=== PATIENT | female | born 1955 | race Caucasian/White ===

== ENCOUNTER 2017-11-14 09:05 | Emergency (ER) | payer OTHER ==
--- OUTSIDE RECORDS SUMMARY | 2017-11-14 09:12 | XMS REPORT ---
:1955 External Reference #:[id number] Author Organization [facility] Address [address] [address] Phone [phone] Care Team Providers Name Role Phone Laxmi Morgan MD Primary Care Physician Unavailable Payers Type Date Identification Numbers Payment Provider Subscriber Commercial Policy Number: [id number] [employer] Nae Garza Group Number: [id number] [address] PayID: [id number] [place] [address] Problems Date Description Provider Status Onset: 04/05/2017 Difficulty breathing Bharti Arguelles MD Active Onset: 04/05/2017 Peptic reflux disease Bharti Arguelles MD Active Onset: 04/05/2017 Disorder of lung Bharti Arguelles MD Active Family History Date Family Member(s) Problem(s) Comments General Diabetes General Heart Disease General cancer Father due to CAD () Mother Chronic Obstructive Pulmonary Disease (COPD) Social History Type Date Description Comments Marital Status Lives With spouse Occupation [employer] Representative Cigarette Use Former smoker Cigarette Use Former Cigarette Smoker 1/2 Pack Daily Cigarette Use Pack Years - 16 ETOH Use Denies alcohol use Smoking Patient is a former smoker Recreational Drug Use Denies Drug Use Daily Caffeine Consumes on average 1 cup of hot tea per day Daily Caffeine Consumes on average 3 cups of regular coffee per day Exercise Type/Frequency Exercises regularly Exercise Type/Frequency Walks 2 times a week Allergies, Adverse Reactions, Alerts Date Description Reaction Status Severity Comments 03/10/2014 Guaifenesin active 03/10/2014 Latex active 08/24/2016 Eggs or Egg-derived Products active Medications Medication Date Status Form Strength Qnty SIG Indications Ordering Provider Mandibular 06/21 Active Device dear , Bharti Advancement Device please MD Kindra evaluate and fabricate oral appliance for mild sleep apnea Zzoma Positional 05/03 Active 1unit G47.33 Bharti Pillow s MD Kindra Flovent Diskus 04/05 Active Aerosol 100mcg/Bl 56uni 1 puff J98.4 ist ts twice MD Kindra daily Evista 00 Active 1 po qday Unknown /0000 Synthroid Active 137mcg 1 po qday Unknown / Gabapentin Active 300mg 1 po qday Unknown / Aspir-81 Active Tablets 81mg 1 by mouth Unknown /0000 every day Crestor Active Tablets 10mg 1 by mouth Unknown / every day Vitamin D Active Capsules 1 by mouth Unknown (Cholecalciferol) / every day Meclizine HCL Active Tablets 12.5mg as needed Unknown /0000 ( using qd) Hydrochlorothiazid Active Tablets 12.5mg 1 by mouth Unknown e / every day Dexilant Active 60mg 1 po daily Unknown / Zantac Active 1 daily Unknown /0000 prn Tramadol HCL 01/26 Hx Tablets 50mg 60tab 1 by mouth M17.12 s every 6 Bordoni, - hours as CUT OFF TENDER GLASS 04/04 needed for pain Tramadol HCL 03/18 Hx Tablets 50mg 40tab 1 tablet s by mouth Tono, - every 6 M.D. 01/20 hours needed pain Naproxen 04/10 Hx Tablets 500mg 60tab 1 tab by Michelle s mouth Tono, - twice a M.D. 03/17 day. with food. Hydrodirual 03/10 Hx Jennifer /2014 Kemi, - M.D. 05/02 Hydroxyzine HCL 00/00 Hx Unknown /0000 - 03/17 Magnesium 00/00 Hx Tablets 1 by mouth Unknown /0000 every day - 04/04 Coq-10 Hx Capsules 2 by mouth Unknown /0000 every day - 04/04 Flovent Diskus 00 Hx Aerosol 250mcg/Bl 1 puff /0000 ist twice a - day 04/05 Medications Administered in Office Medication Date Status Form Strength Qnty SIG Indications Ordering Provider Depomedrol Administered Injection Young Ipson, 40MG 017 PA Depomedrol Administered Injection Jennifer 40MG 016 Antonio Mcmullen Depomedrol Administered Injection Michelle 80MG 015 Antonio Power Depomedrol Administered Injection Jennifer 80MG 014 Antonio Mcmullen Vital Signs Date Vital Result Comment 10/26/2017 Height 62 inches 5'2" Weight 156.50 lb with shoes and sweater Heart Rate 76 /min BP Systolic Sitting 138 mmHg Rue reg cuff BP Diastolic Sitting 76 mmHg Rue reg cuff Respiratory Rate 16 /min O2 % BldC Oximetry 95 % On Ra BMI (Body Mass Index) 28.6 kg/m2 05/22/2017 Height 62 inches 5'2" Weight 143.00 lb Heart Rate 80 /min BP Systolic 122 mmHg BP Diastolic 74 mmHg Body Temperature 98.9 F BMI (Body Mass Index) 26.2 kg/m2 05/03/2017 Height 62 inches 5'2" Weight 143.00 lb Heart Rate 76 /min BP Systolic Sitting 142 mmHg BP Diastolic Sitting 76 mmHg Respiratory Rate 14 /min O2 % BldC Oximetry 96 % room air BMI (Body Mass Index) 26.2 kg/m2 04/05/2017 Height 62 inches 5'2" Weight 140.00 lb Heart Rate 76 /min BP Systolic Sitting 118 mmHg BP Diastolic Sitting 72 mmHg Respiratory Rate 16 /min O2 % BldC Oximetry 98 % BMI (Body Mass Index) 25.6 kg/m2 Neck Circumference in inches 13 08/24/2016 Height 62 inches 5'2" Weight 146.00 lb BP Systolic 118 mmHg BP Diastolic 68 mmHg BMI (Body Mass Index) 26.7 kg/m2 01/27/2016 Height 62 inches 5'2" Weight 146.00 lb Pain Level 4 BMI (Body Mass Index) 26.7 kg/m2 03/18/2015 Height 62 inches 5'2" Weight 146.00 lb Heart Rate 73 /min BP Systolic 150 mmHg BP Diastolic 93 mmHg Pain Level 6 BMI (Body Mass Index) 26.7 kg/m2 04/10/2014 Height 62 inches 5'2" Weight 145.00 lb Heart Rate 72 /min BMI (Body Mass Index) 26.5 kg/m2 03/13/2014 Height 62 inches 5'2" Weight 145.00 lb Heart Rate 71 /min BP Systolic 156 mmHg BP Diastolic 77 mmHg BMI (Body Mass Index) 26.5 kg/m2 Results Test Date Test Result H/L Range Note Anca Panel For Vasculitis 04/12/2017 Myeloperoxidase AB < 0.2 U 1 Proteinase 3 AB < 0.2 U 2 Laboratory test finding 04/12/2017 Centromere Auto Abs <0.2 U 3 Rheumatoid Factor <15 IU/mL <15 4 Scleroderma AB (SCL70) 04/12/2017 Scleroderma Ab <0.2 U 5 Laboratory test finding 04/12/2017 Anti Nuclear Antibody 0.2 U 6 1 REFERENCE VALUE <0.4 (Negative) 2 REFERENCE VALUE <0.4 (Negative) Test Performed by: [facility] [address] [place] [address] 3 REFERENCE VALUE <1.0 (Negative) Test Performed by: [facility] [address] [place] [address] 4 Test Performed by: [address] [address] 5 REFERENCE VALUE <1.0 (Negative) Test Performed by: [facility] [address] [place] [address] 6 REFERENCE VALUE <=1.0 (Negative) Test Performed by: [facility] [address] [place] [address] Procedures Date CPT Code Description Status 05/22/2017 Inject/Drain Joint/Bursa Major Completed 04/12/2017 57692 Sleep Study Unattended,HRT Rate,Oxygen Sat,Resp Completed Effort/Airflow 03/01/2017 31885 Diffusing Capacity Completed 03/01/2017 82830 Plethysmography Determination Lung Volumes & Per Completed Airway Resist 03/01/2017 18929 Pulmonary Function><Bronchodil Completed 08/24/2016 Inject/Drain Joint/Bursa Small Completed 03/18/2015 Inject/Drain Joint/Bursa Major Completed 04/10/2014 62746 Xray Knee 3 Views Completed 04/10/2014 16240 Rad Exam; Knee, Ap&L Completed 03/13/2014 20810 Rad Exam; Hand Comp Completed 03/13/2014 16689 Rad Exam; Hand Comp Completed 03/13/2014 Inject/Drain Joint/Bursa Small Completed Encounters Type Date Location Provider CPT E/M Dx Office Visit 05/03/2017 [facility] [place] [address] G47.33 8:15a Services [facility] Patient Transportation Driver K21.0 Office Visit 04/05/2017 8:45a [facility] [place] [address] J98.4 Services Of Patient Transportation Driver K21.0 R06.83 R40.0 Office Visit 08/24/2016 1:50p [facility] Jennifer Mcmullen 01957 M18.11 Of John Alvarez M75.51 Office Visit 01/27/2016 9:15a [facility] Michelle Power M.D. 67115 M17.12 Of John Office Visit 03/18/2015 3:15p [facility] Michelle Power M.D. 29502 715.96 Of John Office Visit 04/10/2014 2:15p [facility] Michelle Power M.D. 31235 715.96 Of John Office Visit 03/13/2014 8:15a [facility] Jennifer Mcmullen 97767 715.14 Of John Alvarez Plan of Care Future Appointment(s):04/26/2018 3:30 pm - Bhart[facility]2017 - Bharti Arguelles MDJ98.4 Other disorders of lungNew Labs:Alpha 1 Antitrypsin A1aNew Xrays:CT Chest W/OFollow up:6 wxqzotV11.33 Obstructive sleep apnea (adult) (pediatric)K21.0 Gastro-esophageal reflux disease with esophagitis
[2017-11-14 09:16] VITALS: BP 143/62
--- NOTE | 2017-11-14 10:00 | UC ---
Lower Extremity/Ankle HPI - HPI Summary HPI Summary: Patient present following a fall yesterday, she slipped on ice and fell forward and landed on her left knee, and her right leg hyperextended behind her. She got herself up and has been able to walk and move the legs, but complains of right lower posterior leg pain with walking. She also complains of right sided lower back pain. She states the pain occurs when she walks,or moves and is better at rest. she denies any had or neck injury, no LOC. She denies any loss of bowel or bladder, and denies any parasthesia. - History of Current Complaint Chief Complaint: UCBackPain Stated Complaint: RIGHT LEG PAIN Time Seen by Provider: 11/14/17 09:28 Hx Obtained From: Patient Onset/Duration: Sudden Onset, Lasting Days Severity Initially: Mild Severity Currently: Moderate Aggravating Factor(s): Standing, Ambulation Alleviating Factor(s): Rest Able to Bear Weight: Yes - Risk Factors Gout Risk Factors: Negative DVT Risk Factors: Recent Trauma Septic Arthritis Risk Factor: Negative - Allergies/Home Medications Allergies/Adverse Reactions: Allergies Allergy/AdvReac Type Severity Reaction Status Date / Time Eggs or Egg-derived Products Allergy Intermediate Vomiting Verified 11/14/17 09: 16 Latex Allergy Intermediate Hives//Itch Verified 11/14/17 09:16 ing Guaifenesin & Derivatives AdvReac Intermediate Vomiting Verified 11/14/17 09:16 guafensin AdvReac Intermediate Vomiting Uncoded 11/14/17 09:16 Home Medications: Home Medications Dexlansoprazole (NF) [Dexilant (NF)] 60 mg PO DAILY 11/14/17 [History Confirmed 11/14/17] PMH/Surg Hx/FS Hx/Imm Hx Previously Healthy: Yes Endocrine History: Hypothyroidism, Dyslipidemia Cardiovascular History: Hypertension GI/ History: Gastroesophageal Reflux - Surgical History Surgical History: Yes Surgery Procedure, Year, and Place: left knee cartilage removed , hysterectomy, lumpectomy left breast; sinus - Family History Known Family History: Positive: Cardiac Disease - Social History Lives: Alone Alcohol Use: Occasionally Substance Use Type: None Smoking Status (MU): Former Smoker Type: Cigarettes When Did the Patient Quit Smoking/Using Tobacco: 26 years ago Household Exposure Type: Cigarettes Review of Systems Constitutional: Negative Skin: Negative Eyes: Negative ENT: Negative Respiratory: Negative Cardiovascular: Negative Gastrointestinal: Negative Genitourinary: Negative Motor: Negative Neurovascular: Negative Musculoskeletal: Arthralgia, Myalgia Neurological: Negative Psychological: Negative Is Patient Immunocompromised?: No All Other Systems Reviewed And Are Negative: Yes Physical Exam Triage Information Reviewed: Yes Appearance: Well-Appearing Vital Signs: Initial Vital Signs Temp 98.0 F 11/14/17 09:08 Pulse 81 11/14/17 09:08 Resp 16 11/14/17 09:08 BP 143/62 11/14/17 09:08 Pulse Ox 100 11/14/17 09:08 Vital Signs Reviewed: Yes Eye Exam: Normal ENT Exam: Normal Neck exam: Normal Neck: Positive: 1 Respiratory Exam: Normal Cardiovascular Exam: Normal Abdominal Exam: Normal Musculoskeletal Exam: Normal Musculoskeletal: Positive: Strength Intact, ROM Intact, No Edema - back, and right lower extremity; inspection, no areas of erythema, edema, or eccymosis. of vertebra, or the left knee, right posterior leg. palpation, tenderness on palpaiton of the right lower lateral lumbar area. ROM: intact in all planes. vasc: no edema. neruo, no dificits to touch distally. Neurological Exam: Normal Psychological Exam: Normal Skin Exam: Normal Lower Extremity Course/Dx - Course Course Of Treatment: Patient presents one day s/p fall landed on her left knee and extending the right leg behind her. She complains of right lower back, and posterior right leg pain from the lower back to the knee. She declined my recommendations for scrreing xrays, because she had to go help her mother and did not want to spend the time for xrays. I told her that there is no way for me to evaluate for fracture with the xray and she verbalized understanding. I also told her that if her symtpoms persisted and or did not improve within 3-5 days or if for any reason they get worse to either go to the ER/PCP or come back here for imaging. She was RX flexeril and tylenol for pain and discharged home. - Differential Dx/Diagnosis Differential Diagnosis/HQI/PQRI: Sprain, Strain Provider Diagnoses: sprain. strain. muscularskeletal pain. back pain Discharge - Discharge Plan Condition: Stable Disposition: HOME Prescriptions: Acetaminophen TAB* [Tylenol TAB*] 650 mg PO Q4H PRN #20 tab PRN Reason: Pain Cyclobenzaprine HCl [Flexeril 5 mg (NF)] 5 mg PO TID #14 tab Patient Education Materials: Muscle Strain (ED), Musculoskeletal Pain (ED) Referrals: Laxmi oMrgan MD [Primary Care Provider] - Additional Instructions: Patient declined imaging today with the understanding that there could be fracture even though she is able to walk and use the extremity. I told her that is the symptoms persist beyond 3-5 days or if for any reason they get worse to go to the ER at once.
== END 2017-11-14 09:48 | disposition home or self-care (01) ==
LOC: UCEAST 09:05
DX: M54.5 Low back pain (principal); M25.562 Pain in left knee; W00.0XXA Fall on same level due to ice and snow, initial encounter; Y93.9 Activity, unspecified; Y92.9 Unspecified place or not applicable; Y99.9 Unspecified external cause status; K21.9 Gastro-esophageal reflux disease without esophagitis; Z87.891 Personal history of nicotine dependence; Z72.89 Other problems related to lifestyle
CPT/HCPCS: 99212; G0463

== ENCOUNTER 2019-08-11 10:41 | Emergency (ER) | payer OTHER ==
[2019-08-11 10:54] VITALS: BP 146/73
--- NOTE | 2019-08-11 11:41 | UC ---
Skin Complaint HPI - HPI Summary HPI Summary: Patient is 63 year old female , who present today to the urgent care with possible left knee infection since yesterday. Reports that on the top of the incision of the left knee there was a small pustule that she squeezed and pus came out and now there is surrounding area of redness. small scape at the inferior end of the incision. She had L knee incision from knee surgery (replacement) April 22, [address] Dr[address] Dickey 3 weeks ago and knee progressing as expected. Denies any fevers or chills. She has almost completed her physical therapy - History of Current Complaint Chief Complaint: UCWounds Time Seen by Provider: 08/11/19 11:30 Stated Complaint: L KNEE PAIN Pain Intensity: 3 - Allergy/Home Medications Allergies/Adverse Reactions: Allergies Allergy/AdvReac Type Severity Reaction Status Date / Time MS Eggs or Egg-derived Allergy Intermediate Vomiting Verified 08/11/19 10:46 Products [Eggs or Egg-derived Products] MS Latex [Latex] Allergy Intermediate Hives//Itch Verified 08/11/19 10:46 ing MS Guaifenesin & Derivatives AdvReac Intermediate Vomiting Verified 08/11/19 10: 46 [Guaifenesin & Derivatives] guafensin AdvReac Intermediate Vomiting Uncoded 08/11/19 10:46 Home Medications: Home Medications Chlorthalidone TAB* [Hygroton TAB*] 25 mg PO DAILY 08/11/19 [History Confirmed 08/11/19] Pantoprazole TAB * [Protonix TAB*] 40 mg PO DAILY 08/11/19 [History Confirmed ] Potassium 99 mg PO DAILY 08/11/19 [History Confirmed 08/11/19] PMH/Surg Hx/FS Hx/Imm Hx - Additional Past Medical History Additional PMH: Past Medical History : Hypertension, hyperlipidemia, breast cancer acid reflux, arthritis 1995 breast cancer left HX RADIATION AND CHEMO Past Surgical History: left knee replaced, hysterectomy, lumpectomy left breast ; sinus surgery Family History : non contributory Social History no alcohol, former smoker, no drug use. Previously Healthy: Yes - Surgical History Surgical History: Yes Surgery Procedure, Year, and Place: left knee replaced, hysterectomy, lumpectomy left breast; sinus surgery - Family History Known Family History: Positive: Cardiac Disease, Non-Contributory - Social History Alcohol Use: None Substance Use Type: None Smoking Status (MU): Former Smoker Type: Cigarettes When Did the Patient Quit Smoking/Using Tobacco: 26 years ago Household Exposure Type: Cigarettes Review of Systems All Other Systems Reviewed And Are Negative: Yes Constitutional: Positive: Negative Skin: Positive: Other - redness of left knee incision Eyes: Positive: Negative ENT: Positive: Negative Respiratory: Positive: Negative Cardiovascular: Positive: Negative Gastrointestinal: Positive: Negative Genitourinary: Positive: Negative Motor: Positive: Negative Neurovascular: Positive: Negative Musculoskeletal: Positive: Negative Neurological: Positive: Negative Psychological: Positive: Negative Is Patient Immunocompromised?: No Physical Exam - Summary Physical Exam Summary: Vital Signs Reviewed: Yes A+Ox3, no distress Eyes: Conjunctiva Clear ENT: Hearing grossly normal neck: supple Respiratory: Positive: No respiratory distress, No accessory muscle use Cardiovascular: skin color reflect adequate perfusion Musculoskeletal Exam: VALVERDE x 4 without difficulty Neurological: Positive: Alert, ambulatory without difficulty Psychological: Positive: Normal Response To Family Skin: Normal warmth Left knee vertical incision appears within normal limits, there is no dehiscence noted. On the proximal end of the incision there is an area of redness with a small central clot where she expressed pus from. Upon squeezing there is no more pus expressible. Minimal tenderness. No other drainage noted. A small scraping wound at the left lower and of the incision. Left knee: Some effusion and full range of motion pain-free. Triage Information Reviewed: Yes Vital Signs: Initial Vital Signs Temp 98.4 F 08/11/19 10:49 Pulse 67 08/11/19 10:49 Resp 18 08/11/19 10:49 BP 146/73 08/11/19 10:49 Pulse Ox 99 08/11/19 10:49 Vital Signs Reviewed: Yes Course/Dx - Course Course Of Treatment: During the visit today, we discussed the findings which are consistent with cellulitis . Does not appear to be like a septic joint. . I will prescribe the medication to the pharmacy . I advised her to follow-up with Dr. Dickey in 2-3 days for recheck as [place] of country the following week for 3 weeks. Patient expressed understanding . - Diagnoses Provider Diagnosis: Cellulitis Discharge ED - Sign-Out/Discharge Documenting (check all that apply): Patient Departure All imaging exams completed and their final reports reviewed: No Studies - Discharge Plan Condition: Stable Disposition: HOME Prescriptions: Cephalexin CAP* [Keflex CAP*] 500 mg PO TID 7 Days #21 cap Mupirocin 2% OINT* [Bactroban 2 % Oint*] 1 applic TOPICAL BID 7 Days #1 tube Patient Education Materials: Cellulitis (ED) Referrals: Lis Bull DO [Primary Care Provider] - Additional Instructions: Please start taking the medication as prescribed to the pharmacy . Follow up with your orthopedic surgeon. in 2-3 days. Patients blood pressure slightly high in Urgent care today , plan follow up with PCP for better control Return to Urgent care / ER if symptoms get worse. - Billing Disposition and Condition Condition: STABLE Disposition: Home
== END 2019-08-11 12:10 | disposition home or self-care (01) ==
LOC: UCEAST 10:41
DX: L03.116 Cellulitis of left lower limb (principal); Z91.040 Latex allergy status; Z87.891 Personal history of nicotine dependence
CPT/HCPCS: 99212; G0463

== ENCOUNTER 2019-12-28 11:40 | Emergency (ER) | payer MEDICARE ==
[2019-12-28 12:20] VITALS: BP 131/59
--- NOTE | 2019-12-28 12:38 | UC ---
Respiratory Complaint HPI - HPI Summary HPI Summary: 64 y/o female presents to the urgent care c/o dry cough, congestion, body aches , mild sore throat, and hoarseness for the past 5 days. She was exposed to someone w/ pneumonia last week at a green party. Pt states pain w/ swallowing is 3/ 10. She has been taking OTC medication to alleviate cough w/o any improvement. She is allergic to guaifenicine PO in the past and she is usually is Rx for cough is Promethazine/codeine which works for her. Last night she couldn't sleep due to cough despite. Pt denies fever, SOB, dizziness, KNOX, chest pain, abdominal pain, N/V/d. - History of Current Complaint Chief Complaint: UCGeneralIllness Stated Complaint: COLD SYMPTOMS Time Seen by Provider: 12/28/19 12:37 Hx Obtained From: Patient Onset/Duration: Gradual Onset, Lasting Weeks - 1 week, Still Present, Worse Since - yesterday Timing: Intermittent Episodes Severity Initially: Mild Severity Currently: Mild Pain Intensity: 0 Pain Scale Used: 0-10 Numeric Character: Cough: Nonproductive Aggravating Factors: Recumbent Position Alleviating Factors: OTC Meds Associated Signs And Symptoms: Positive: Chills, URI, Nasal Congestion - clear. Negative: Wheezing, Hemoptysis, Dizziness - Risk Factors Pulmonary Embolism Risk Factors: Negative Cardiac Risk Factors: Negative Pseudomonas Risk Factors: Negative Tuberculosis Risk Factors: Negative - Allergies/Home Medications Allergies/Adverse Reactions: Allergies Allergy/AdvReac Type Severity Reaction Status Date / Time egg Allergy Vomiting Verified 12/28/19 12:20 latex Allergy Hives Verified 12/28/19 12:20 guafensin AdvReac Intermediate Vomiting Uncoded 12/28/19 12:20 Home Medications: Home Medications Irbesartan [Avapro] 75 mg PO DAILY 12/28/19 [History Confirmed 12/28/19] Raloxifene HCl [Evista] 60 mg PO DAILY 12/28/19 [History Confirmed 12/28/19] Rosuvastatin Calcium 10 mg PO DAILY 12/28/19 [History Confirmed 12/28/19] PMH/Surg Hx/FS Hx/Imm Hx Previously Healthy: Yes Endocrine History: Hypothyroidism Cardiovascular History: Hypertension GI/ History: Gastroesophageal Reflux Other Neurological History: restless syndrome - Surgical History Surgical History: Yes Surgery Procedure, Year, and Place: left knee replaced, hysterectomy, lumpectomy left breast; sinus surgery - Family History Known Family History: Positive: Cardiac Disease, Non-Contributory - Social History Occupation: Retired Lives: With Family Alcohol Use: Rare Substance Use Type: None Smoking Status (MU): Former Smoker Type: Cigarettes When Did the Patient Quit Smoking/Using Tobacco: 30 Household Exposure Type: Cigarettes Review of Systems All Other Systems Reviewed And Are Negative: Yes Constitutional: Positive: Fatigue, Other - body aches Skin: Positive: Negative Eyes: Positive: Negative ENT: Positive: Sore Throat, Nasal Discharge - clear, Sinus Congestion, Other - PND Respiratory: Positive: Cough - dry Cardiovascular: Positive: Negative Gastrointestinal: Positive: Negative Genitourinary: Positive: Negative Motor: Positive: Negative Neurovascular: Positive: Negative Musculoskeletal: Positive: Myalgia Neurological: Positive: Negative Psychological: Positive: Negative Is Patient Immunocompromised?: No Physical Exam - Summary Physical Exam Summary: VITAL SIGNS: Reviewed. GENERAL: Patient is a well developed and nourished female who is sitting comfortably in the examining table. Patient is not in any acute respiratory distress. HEAD AND FACE: No signs of trauma. No ecchymosis, hematomas or skull depressions. No sinus tenderness. EYES: PERRLA, EOMI x 2, No injected conjunctiva, no nystagmus. No photophobia. EARS: Hearing grossly intact. Ear canals and tympanic membranes are within normal limits. MOUTH: Positive pharynx with mild erythema, no exudates, No B/L tonsillar enlargement , no exudate. Uvula in midline. edematous nasal mucosa w/ clear nasal discharge, clear PND NECK: Supple, trachea is midline, Positive anterior cervical lymphadenopathy, no JVD, no carotid bruit, no c-spine tenderness, neck with full ROM. No meningeal signs, no Kernig's or brudzinskis signs. CHEST: Symmetric, no tenderness at palpation LUNGS: Clear to auscultation bilaterally. No wheezing or crackles. CVS: Regular rate and rhythm, S1 and S2 present, no murmurs or gallops appreciated. ABDOMEN: Soft, non-tender. No signs of distention. No rebound no guarding, and no masses palpated. Bowel sounds are normal. EXTREMITIES: FROM in all major joints, no edema, no cyanosis or clubbing. NEURO: Alert and oriented x 3. No acute neurological deficits. Pt follows commands. Triage Information Reviewed: Yes Vital Signs: Initial Vital Signs Temp 98.3 F 12/28/19 12:14 Pulse 80 12/28/19 12:14 Resp 14 12/28/19 12:14 BP 131/59 12/28/19 12:14 Pulse Ox 98 12/28/19 12:14 Respiratory Course/Dx - Course Course Of Treatment: 64 y/o female presents to the urgent care c/o dry cough, congestion, body aches , mild sore throat, and hoarseness for the past 5 days. She was exposed to someone w/ pneumonia last week at a green party. Pt states pain w/ swallowing is 3/ 10. She has been taking OTC medication to alleviate cough w/o any improvement. She is allergic to guaifenicine PO in the past and she is usually is Rx for cough is Promethazine/codeine which works for her. She also states Tessalon tabs don't work for her. Last night she couldn't sleep due to cough despite. Pt denies fever, SOB, dizziness, KNOX, chest pain, abdominal pain, N/V/d. Hx obtained.Pt w/ URI on examination. Influenza A&B ordered: result: negative. Pt Rx Promethazine/codeine PO , Flonase nasal spray as directed below. Pt request albuterol inhaler refill which was also Rx. The internet was having issues w/ DR First to Rx The Promethazine/codeine and paper scrip was written forthis medication. Advised on hand washing. Pt advised to rest, increase fluid intake , eat well and avoid strenuous exercise. If symptoms do not improve or worsen advised to return to the urgent care or f/u with her PCP for further evaluation and treatment. Pt understood and agreed with the plan of care. - Differential Dx/Diagnosis Differential Diagnosis/HQI/PQRI: Asthma, Bronchitis, Influenza, Laryngitis, Lower Resp Infection, Sinusitis, Other - pneumonia Provider Diagnosis: Upper respiratory infection, Cough Discharge ED - Sign-Out/Discharge Documenting (check all that apply): Patient Departure - d/C home All imaging exams completed and their final reports reviewed: No Studies - Discharge Plan Condition: Stable Disposition: HOME Prescriptions: Albuterol HFA INHALER* [Ventolin HFA Inhaler*] 1 - 2 puff INH Q6H PRN #1 mdi PRN Reason: wheezing/bronchospasm Fluticasone NASAL SPRAY 50MCG* [Flonase NASAL SPRAY 50MCG*] 2 spray BOTH NARES DAILY #1 btl Promethazine HCl/Codeine [Prometh-Codein 6.25-10 mg/5 ml] 5 ml PO Q8HR #1 syrup MDD 30ml/day Patient Education Materials: Upper Respiratory Infection (ED) Referrals: Efe Cr MD [Primary Care Provider] - 3 Days Additional Instructions: 1- Please take Phenergan/codeine as directed to alleviate cough. Also use the Albuterol inhaler if your develop bronchospasm or wheezing. 2- Use saline drops and Flonase nasal spray as directed to clear sinus 3-Please take ibuprofen or Tylenol PO q6-8hrs prn as instructed after meals to alleviate pain and swelling. Increase fluid intake, eat well, rest and avoid strenuous exercise 4-If symptoms do not improve or worsen please return to the urgent care or f/u with your PCP in 3 days for further evaluation and treatment. - Billing Disposition and Condition Condition: STABLE Disposition: Home
[2019-12-28 13:03] LABS: Influenza A Molecular Negative (Negative); Influenza B Molecular Negative (Negative)
== END 2019-12-28 14:10 | disposition home or self-care (01) ==
LOC: UCEAST 11:40
DX: J06.9 Acute upper respiratory infection, unspecified (principal); R05 Cough; E03.9 Hypothyroidism, unspecified; I10 Essential (primary) hypertension; Z91.040 Latex allergy status; Z91.012 Allergy to eggs; Z88.8 Allergy status to other drugs, medicaments and biological substances; Z79.899 Other long term (current) drug therapy; Z87.891 Personal history of nicotine dependence
CPT/HCPCS: 87651; 99212; G0463